=== PATIENT | female | born 1945 | race Caucasian/White ===

== ENCOUNTER 2020-05-08 05:26 | Inpatient (IN) ==
[2020-05-08] MEDS ORDERED: VANCOMYCIN 1,000 MG VIAL ONE (05:50)
[2020-05-08] MEDS ORDERED: VANCOMYCIN INJ 1,000 MG in SODIUM CHLORIDE 0.9% 250 ML IV ONE (06:00)
[2020-05-08] MEDS ORDERED: LIDOCAINE 1% 5 ML VIAL ONE (06:27)
[2020-05-08] MEDS ORDERED: ROPIVACAINE 0.5% 30 ML VIAL ONE (06:27)
[2020-05-08] MEDS ORDERED: DEXAMETHASONE 4 MG/1 ML VIAL ONE (06:27)
[2020-05-08] MEDS ORDERED: DEXMEDETOMIDINE 200 MCG/2 ML VIAL ONE (06:27)
[2020-05-08] MEDS ORDERED: BUPIVACAINE SPINAL 0.75% 2 ML AMP SPINAL ONE (06:27)
[2020-05-08] MEDS ORDERED: BACITRACIN OINT 0.9 GM PACK TOP ONE (06:27)
[2020-05-08] MEDS ORDERED: ceFAZolin 2,000 MG in PREMIX 1 EACH IV ONE (07:00)
[2020-05-08] MEDS ORDERED: LACTATED RINGERS 1,000 ML IV SCH (07:00)
[2020-05-08] MEDS ORDERED: MAGNESIUM HYDROXIDE SUSP 30 ML UDCUP PO PRN (07:29)
[2020-05-08] MEDS ORDERED: MORPHINE 4 MG/1 ML VIAL IV PRN ×2 (07:29)
[2020-05-08] MEDS ORDERED: ZALEPLON 5 MG CAPSULE PO PRN (07:29)
[2020-05-08] MEDS ORDERED: ONDANSETRON 4 MG/2 ML VIAL IV PRN (07:29)
[2020-05-08] MEDS: DOCUSATE SODIUM 100 MG CAPSULE PO SCH ×2 (09:00→20:29)
[2020-05-08] MEDS: GABAPENTIN 300 MG CAPSULE PO SCH ×2 (09:00→20:29)
[2020-05-08] MEDS ORDERED: GLYCOPYRROLATE 0.4 MG/2 ML VIAL ONE (09:01)
[2020-05-08] MEDS ORDERED: MIDAZOLAM 2 MG/2 ML VIAL ONE (09:01)
[2020-05-08] MEDS ORDERED: ATROPINE 0.4 MG/1 ML VIAL ONE (09:01)
[2020-05-08] MEDS ORDERED: propofoL 200 MG/20 ML VIAL IV ONE (09:01)
[2020-05-08] MEDS ORDERED: PHENYLEPHRINE 1 MG/10 ML SYRINGE IV ONE (09:02)
[2020-05-08] MEDS ORDERED: TRANEXAMIC ACID 1,000 MG/10 ML VIAL ONE (09:12)
[2020-05-08] MEDS: LACTATED RINGERS 1,000 ML IV SCH ×2 (11:11→15:30)
[2020-05-08] MEDS ORDERED: KETOROLAC 30 MG/1 ML VIAL ONE (11:28)
[2020-05-08] MEDS: KETOROLAC 30 MG/1 ML VIAL IV SCH ×2 (11:30→18:16)
[2020-05-08] MEDS: ceFAZolin 2,000 MG in PREMIX 1 EACH IV SCH ×2 (12:55→20:33)
[2020-05-08] MEDS: CHOLECALCIFEROL 1,000 UNIT TABLET PO SCH (14:26)
[2020-05-08] MEDS: ATORVASTATIN 20 MG TABLET PO SCH (14:27)
[2020-05-08] MEDS: CYANOCOBALAMIN 500 MCG TABLET PO SCH (14:27)
[2020-05-08] MEDS: ASCORBIC ACID 500 MG TABLET PO SCH (14:27)
[2020-05-08] MEDS: LEVOTHYROXINE 88 MCG TABLET PO SCH (14:27)
[2020-05-08] MEDS: CALCIUM (CARBONATE) 600 MG TABLET PO SCH (14:27)
[2020-05-08] MEDS: PANTOPRAZOLE 40 MG TABLET PO SCH (14:27)
[2020-05-08 15:05] LABS: Basophils % 0.3 % (0.0-0.8); Eosinophils % 0.1 % (0.00-10.9); Hematocrit 31.8 VOL% (35.7-47.0); Hemoglobin 9.7 GM/DL (12.0-16.0); Immature Granulocytes % 0.5 %; Immature Granulocytes Absolute 0.06 #; Lymphocytes # 0.6 10*3/uL (1.4-4.0); Lymphocytes % 5.3 % (21.3-54.2); Mean Corpuscular HGB Conc 30.5 GM/DL (32-36); Mean Platelet Volume 10.4 FL (9.6-12.0); Monocytes % 0.5 % (1.7-12.7); Neutrophils % 93.3 % (38.7-73.9); Platelet Count 215 T/CUMM (130-400); Red Blood Count 3.28 MC/CUMM (3.8-5.5); Red Cell Distribution Width 13.9 % (9.3-17.3); White Blood Count 11.7 T/CUMM (4-12)
[2020-05-08 15:33] LABS: Calcium 7.8 MG/DL (8.5-10.1); Osmolality,Calculated 285.4 MOS/KG (273-304)
[2020-05-08 15:46] LABS: Lymphocytes 8 % (20-55); Platelet Estimate Adequate; Segmented Neutrophils 91 % (50-85); Total Cells Counted 100
[2020-05-09] MEDS: KETOROLAC 30 MG/1 ML VIAL IV SCH (00:57)
[2020-05-09] MEDS: LACTATED RINGERS 1,000 ML IV SCH ×2 (00:57→09:34)
[2020-05-09] MEDS: FONDAPARINUX 2.5 MG/0.5 ML SYRINGE SUBCUT SCH (05:38)
[2020-05-09] MEDS ORDERED: KETOROLAC 30 MG/1 ML VIAL IV SCH (06:00)
[2020-05-09 06:17] LABS: Basophils % 0.1 % (0.0-0.8); Hematocrit 26.4 VOL% (35.7-47.0); Hemoglobin 8.3 GM/DL (12.0-16.0); Immature Granulocytes % 0.4 %; Immature Granulocytes Absolute 0.03 #; Lymphocytes # 0.6 10*3/uL (1.4-4.0); Lymphocytes % 8.1 % (21.3-54.2); Mean Corpuscular HGB Conc 31.4 GM/DL (32-36); Mean Corpuscular Volume 95.3 FL (87-102); Mean Platelet Volume 11.1 FL (9.6-12.0); Monocytes % 3.3 % (1.7-12.7); Neutrophils % 88.1 % (38.7-73.9); Platelet Count 205 T/CUMM (130-400); Red Blood Count 2.77 MC/CUMM (3.8-5.5); Red Cell Distribution Width 13.8 % (9.3-17.3); White Blood Count 7.9 T/CUMM (4-12)
[2020-05-09 06:57] LABS: Calcium 8.9 MG/DL (8.5-10.1); Osmolality,Calculated 287.3 MOS/KG (273-304)
[2020-05-09] MEDS: CHOLECALCIFEROL 1,000 UNIT TABLET PO SCH (09:35)
[2020-05-09] MEDS: LEVOTHYROXINE 88 MCG TABLET PO SCH (09:36)
[2020-05-09] MEDS: CALCIUM (CARBONATE) 600 MG TABLET PO SCH (09:36)
[2020-05-09] MEDS: POTASSIUM CHLORIDE 20 MEQ TABLET PO SCH (09:36)
[2020-05-09] MEDS: AMOXICILLIN 500 MG CAPSULE PO SCH ×3 (09:36→21:13)
[2020-05-09] MEDS: GABAPENTIN 300 MG CAPSULE PO SCH ×2 (09:36→21:13)
[2020-05-09] MEDS: FUROSEMIDE 20 MG TABLET PO SCH (09:36)
[2020-05-09] MEDS: PANTOPRAZOLE 40 MG TABLET PO SCH (09:36)
[2020-05-09] MEDS: ASCORBIC ACID 500 MG TABLET PO SCH (09:37)
[2020-05-09] MEDS: DOCUSATE SODIUM 100 MG CAPSULE PO SCH ×2 (09:37→21:13)
[2020-05-09] MEDS: CYANOCOBALAMIN 500 MCG TABLET PO SCH (09:37)
[2020-05-09] MEDS: ATORVASTATIN 20 MG TABLET PO SCH (09:37)
[2020-05-10] MEDS: FONDAPARINUX 2.5 MG/0.5 ML SYRINGE SUBCUT SCH (05:21)
[2020-05-10 05:35] LABS: Basophils % 0.5 % (0.0-0.8); Eosinophils # 0.1 10*3/uL (0.0-0.87); Eosinophils % 2.5 % (0.00-10.9); Hematocrit 24.4 VOL% (35.7-47.0); Hemoglobin 7.5 GM/DL (12.0-16.0); Immature Granulocytes % 0.5 %; Immature Granulocytes Absolute 0.03 #; Lymphocytes # 1.6 10*3/uL (1.4-4.0); Lymphocytes % 28.9 % (21.3-54.2); Mean Corpuscular HGB Conc 30.7 GM/DL (32-36); Mean Corpuscular Volume 96.4 FL (87-102); Mean Platelet Volume 10.8 FL (9.6-12.0); Monocytes % 7.4 % (1.7-12.7); Neutrophils % 60.2 % (38.7-73.9); Platelet Count 167 T/CUMM (130-400); Red Blood Count 2.53 MC/CUMM (3.8-5.5); Red Cell Distribution Width 14.2 % (9.3-17.3); White Blood Count 5.7 T/CUMM (4-12)
[2020-05-10] MEDS ORDERED: SODIUM CHLORIDE 0.9% 1,000 ML IV PRN (08:24)
[2020-05-10] MEDS ORDERED: FUROSEMIDE 40 MG/4 ML VIAL IV PRN (08:24)
[2020-05-10] MEDS: ASCORBIC ACID 500 MG TABLET PO SCH (09:16)
[2020-05-10] MEDS: CALCIUM (CARBONATE) 600 MG TABLET PO SCH (09:16)
[2020-05-10] MEDS: FUROSEMIDE 20 MG TABLET PO SCH (09:16)
[2020-05-10] MEDS: LEVOTHYROXINE 88 MCG TABLET PO SCH (09:16)
[2020-05-10] MEDS: GABAPENTIN 300 MG CAPSULE PO SCH ×2 (09:16→20:33)
[2020-05-10] MEDS: CYANOCOBALAMIN 500 MCG TABLET PO SCH (09:16)
[2020-05-10] MEDS: DOCUSATE SODIUM 100 MG CAPSULE PO SCH ×2 (09:16→20:33)
[2020-05-10] MEDS: ATORVASTATIN 20 MG TABLET PO SCH (09:16)
[2020-05-10] MEDS: CHOLECALCIFEROL 1,000 UNIT TABLET PO SCH (09:17)
[2020-05-10] MEDS: AMOXICILLIN 500 MG CAPSULE PO SCH ×3 (09:20→20:33)
[2020-05-10] MEDS: PANTOPRAZOLE 40 MG TABLET PO SCH (09:20)
[2020-05-11 05:24] LABS: Basophils % 0.5 % (0.0-0.8); Eosinophils # 0.4 10*3/uL (0.0-0.87); Eosinophils % 4.7 % (0.00-10.9); Hematocrit 31.3 VOL% (35.7-47.0); Immature Granulocytes % 0.5 %; Immature Granulocytes Absolute 0.04 #; Lymphocytes # 2.2 10*3/uL (1.4-4.0); Lymphocytes % 27.1 % (21.3-54.2); Mean Corpuscular Volume 93.4 FL (87-102); Mean Platelet Volume 10.2 FL (9.6-12.0); Monocytes % 6.7 % (1.7-12.7); Neutrophils % 60.5 % (38.7-73.9); Platelet Count 195 T/CUMM (130-400); Red Blood Count 3.35 MC/CUMM (3.8-5.5); Red Cell Distribution Width 16.2 % (9.3-17.3); White Blood Count 7.9 T/CUMM (4-12)
[2020-05-11 05:25] LABS: Hemoglobin 9.7 GM/DL (12.0-16.0)
[2020-05-11] MEDS: FONDAPARINUX 2.5 MG/0.5 ML SYRINGE SUBCUT SCH (06:00)
[2020-05-11 11:18] VITALS: BP 143/74
[2020-05-11] MEDS: CHOLECALCIFEROL 1,000 UNIT TABLET PO SCH (12:01)
[2020-05-11] MEDS: POTASSIUM CHLORIDE 20 MEQ TABLET PO SCH (12:01)
[2020-05-11] MEDS: LEVOTHYROXINE 88 MCG TABLET PO SCH (12:01)
[2020-05-11] MEDS: AMOXICILLIN 500 MG CAPSULE PO SCH ×2 (12:01→16:18)
[2020-05-11] MEDS: PANTOPRAZOLE 40 MG TABLET PO SCH (12:01)
[2020-05-11] MEDS: GABAPENTIN 300 MG CAPSULE PO SCH (12:01)
[2020-05-11] MEDS: CALCIUM (CARBONATE) 600 MG TABLET PO SCH (12:01)
[2020-05-11] MEDS: FUROSEMIDE 20 MG TABLET PO SCH (12:02)
[2020-05-11] MEDS: CYANOCOBALAMIN 500 MCG TABLET PO SCH (12:02)
[2020-05-11] MEDS: DOCUSATE SODIUM 100 MG CAPSULE PO SCH (12:02)
[2020-05-11] MEDS: ATORVASTATIN 20 MG TABLET PO SCH (12:17)
[2020-05-11] MEDS: ASCORBIC ACID 500 MG TABLET PO SCH (12:43)
[2020-05-11] MEDS ORDERED: INFLUENZA VIRUS VACCINE 0.5 ML SYRINGE IM ONE (12:51)
== END 2020-05-11 14:00 | disposition home health service (06) | DRG 470 ==
LOC: N.OR 05:26 → N.SDSINP 05:29 → N.3E 12:16
PROVIDERS: ADMIT Orthopaedic Surgery; ATTEND Orthopaedic Surgery